=== PATIENT | female | born 1970 | race Caucasian/White ===

== ENCOUNTER 2018-12-24 09:13 | Day surgery (SDC) | payer MEDICAID ==
[2018-12-24] MEDS ORDERED: Lactated Ringers 1,000 ML IV SCH (09:45)
[2018-12-24] MEDS ORDERED: Midazolam 1 MG/ML 2 ML SDV ONE (10:50)
[2018-12-24] MEDS ORDERED: fentaNYL 100 MCG/2 ML SDV ONE (10:50)
[2018-12-24] MEDS ORDERED: Propofol 200 MG/20 ML SDV ONE (10:50)
[2018-12-24 13:03] VITALS: BP 140/53
--- NOTE | 2018-12-26 17:33 | OR ---
DATE OF PROCEDURE: 12/24/2018 PREOPERATIVE DIAGNOSIS: Colon cancer screening. POSTOPERATIVE DIAGNOSIS: Unremarkable colonoscopy. PROCEDURE: Colonoscopy to the cecum. ANESTHESIA: IV anesthesia with monitored anesthesia care. SURGEON: William Youssef MD INDICATION: This 48-year-old white female is referred for a colonoscopy for colon cancer screening. I counseled her for the procedure, including risks and alternatives, and she gave her informed consent to proceed. DESCRIPTION OF PROCEDURE: The patient was placed in the left lateral decubitus position. IV anesthesia was administered by the Anesthesia Service. Time-out was held. A rectal exam was performed, which was unremarkable. The flexible video Olympus colonoscope was introduced through her anus, up her rectum and out her colon, all the way to the cecum. Once the cecum was reached, the scope was slowly withdrawn, examining the mucosa throughout. No mucosal abnormalities were noted. The scope was retroflexed in the rectum with the distal rectum appearing unremarkable. The scope was straightened and removed. She tolerated the procedure well. William Youssef MD /[id number]
== END 2018-12-24 12:50 | disposition home or self-care (01) ==
LOC: JP.SDS 09:13
PROVIDERS: ATTEND Surgery
DX: Z12.11 Encounter for screening for malignant neoplasm of colon (principal); K21.9 Gastro-esophageal reflux disease without esophagitis; F41.9 Anxiety disorder, unspecified
CPT/HCPCS: 45378; J2250; J2704; J3010; J7120

== ENCOUNTER 2020-03-01 18:11 | Emergency (ER) | payer MEDICAID ==
[2020-03-01 18:56] VITALS: BP 154/100; PULSE 83
[2020-03-01] MEDS ORDERED: Propofol 200 MG/20 ML SDV IVPUSH ONE (19:08)
[2020-03-01] MEDS ORDERED: HYDROmorphone 0.5 MG/0.5 ML Syringe IVPUSH ONE (19:08)
--- NOTE | 2020-03-01 19:19 | CRLCR ---
Injury dislocation. Single AP view of the right shoulder. Findings: The humeral head is dislocated anterior inferior to the glenoid. No fractures. Dictated by Marie York MD @ Mar 01 2020 7:15PM Signed by Dr. Marie York @ Mar 01 2020 7:18PM
--- NOTE | 2020-03-01 19:43 | EDM.PDOC ---
ED HPI GENERAL MEDICAL PROBLEM - General Chief Complaint: Upper Extremity Injury/Pain Stated Complaint: RIGHT SHOULDER PAIN Time Seen by Provider: 03/01/20 19:00 Source of Information: Reports: Patient, Family History Limitations: Reports: No Limitations - History of Present Illness INITIAL COMMENTS - FREE TEXT/NARRATIVE: 50-year-old female was being pulled behind a boat on the tube where she fell off and injured her right shoulder. She is unable to move her shoulder. No distal paresthesias. No other injury, she is very healthy. She has not had anything to eat since this morning. Onset: Sudden Duration: Hour(s): (1 hour) Location: Reports: Upper Extremity, Right Associated Symptoms: Reports: No Other Symptoms Right Shoulder Pain Score (Numeric/FACES): 10 - Related Data Allergies Allergy/AdvReac Type Severity Reaction Status Date / Time No Known Allergies Allergy Verified 03/01/20 18:58 Home Meds: Home Meds Venlafaxine [Effexor] 75 mg PO DAILY 05/21/16 [History] Omeprazole 20 mg PO DAILY 12/20/18 [History] Tretinoin [Retin-A] 1 applic TOP DAILY 12/20/18 [History] Methotrexate Sodium/PF [Methotrexate 1 gm Vial] 0 dose IM ASDIRECTED 03/01/20 [History] predniSONE [Prednisone] 15 mg PO ASDIRECTED 03/01/20 [History] Past Medical History Musculoskeletal History: Reports: Fracture, Other (See Below) Other Musculoskeletal History: polymyalgia rheumatica - Past Surgical History HEENT Surgical History: Reports: Oral Surgery Musculoskeletal Surgical History: Reports: Carpal Tunnel Social & Family History - Tobacco Use Smoking Status *Q: Never Smoker - Caffeine Use Caffeine Use: Reports: Soda - Recreational Drug Use Recreational Drug Use: No Review of Systems - Review of Systems Review Of Systems: See Below Constitutional: Denies: Fever Respiratory: Denies: Shortness of Breath Cardiovascular: Denies: Chest Pain Musculoskeletal: Reports: Shoulder Pain (Right side) Skin: Denies: Bruising Neurological: Denies: Paresthesia ED EXAM, GENERAL - Physical Exam Exam: See Below Exam Limited By: No Limitations General Appearance: Alert, Moderate Distress Head: Atraumatic Neck: Non-Tender Respiratory/Chest: No Respiratory Distress Extremities: Other (The right shoulder shows a defect under the AC joint area. There is fullness anteriorly, and significant pain with any passive range of motion) Neurological: Alert, Oriented Psychiatric: Anxious Skin Exam: Warm, Dry Course - Vital Signs Last Recorded V/S: Last Vital Signs Temp 96.3 F L 03/01/20 18:56 Pulse 83 03/01/20 18:56 Resp 20 03/01/20 18:56 BP 154/100 H 03/01/20 18:56 Pulse Ox 95 03/01/20 18:56 - Orders/Labs/Meds Meds: Medications Discontinued Medications Generic Name Dose Route Start Last Admin Trade Name Jazmine PRN Reason Stop Dose Admin Hydromorphone HCl 0.5 mg 03/01/20 19:08 03/01/20 19:16 Dilaudid IVPUSH 03/01/20 19:09 0.5 mg ONETIME ONE Administration Propofol 200 mg 03/01/20 19:08 03/01/20 19:21 Diprivan 20 Ml IVPUSH 03/01/20 19:09 200 mg ONETIME ONE Administration - Re-Assessments/Exams Free Text/Narrative Re-Assessment/Exam: 03/01/20 19:41 An x-ray confirmed an anterior dislocation with no apparent fracture. With consent the patient was prepared for moderate anesthesia with propofol for shoulder reduction. A total of 130 mg of propofol was used to seduce sedation, and using countertraction the shoulder was reduced. 1 view x-ray confirmed anatomic reduction. Patient tolerated the procedure well, and on awakening she had significantly less discomfort. A right shoulder sling was placed on the patient she will follow-up with orthopedics later this week. Departure - Departure Time of Disposition: 20:10 Disposition: Home, Self-Care 01 Clinical Impression: Dislocation of right shoulder joint Qualifiers: Encounter type: initial encounter Qualified Code(s): S43.004A - Unspecified dislocation of right shoulder joint, initial encounter - Discharge Information Instructions: Shoulder Dislocation Referrals: PCP,None [Primary Care Provider] - Forms: ED Department Discharge Care Plan Goals: Wear sling for the next several days, avoid reaching upward and backward with your right arm and consider rechecking with orthopedics in the next 1 to 2 weeks to monitor progress. Sepsis Event Note (ED) - Evaluation Sepsis Screening Result: No Definite Risk - Focused Exam Vital Signs: Vital Signs Temp Pulse Resp BP Pulse Ox 03/01/20 18:56 96.3 F L 83 20 154/100 H 95 03/01/20 18:55 96.3 F L 83 20 154/100 H 95
--- NOTE | 2020-03-01 19:45 | CRLCR ---
HISTORY: Post reduction. TECHNIQUE: One view of the right shoulder. COMPARISON: 03/01/2020. FINDINGS: Reduction in previously seen right anterior shoulder dislocation. No acute fracture. Mild right AC joint arthrosis. IMPRESSION: 1. Reduction in previously seen right anterior shoulder dislocation. 2. No acute fracture. Dictated by Chang Tenorio MD @ 03/01/2020 7:45:10 PM Dictated by: Chang Tenorio MD @ 03/01/2020 19:45:12 (Electronically Signed)
== END 2020-03-01 20:10 | disposition home or self-care (01) ==
LOC: JP.ED 18:11
DX: S43.034A Inferior dislocation of right humerus, initial encounter (principal); S43.014A Anterior dislocation of right humerus, initial encounter; Z79.899 Other long term (current) drug therapy; W18.09XA Striking against other object with subsequent fall, initial encounter
CPT/HCPCS: 23650; 73020; 96374; 99152; 99283; J1170; J2704

== ENCOUNTER 2020-03-12 10:11 | Emergency (ER) | payer MEDICAID ==
[2020-03-12 10:33] VITALS: BP 149/85; PULSE 87
[2020-03-12] MEDS ORDERED: HYDROmorphone 1 MG/ML Syringe IM ONE (10:40)
--- NOTE | 2020-03-12 10:44 | EDM.PDOC ---
ED HPI GENERAL MEDICAL PROBLEM - General Chief Complaint: Upper Extremity Injury/Pain Stated Complaint: R SHOULDER PAIN Time Seen by Provider: 03/12/20 10:41 Source of Information: Reports: Patient, Old Records, RN History Limitations: Reports: No Limitations - History of Present Illness INITIAL COMMENTS - FREE TEXT/NARRATIVE: 50 yo female is brought in for R shoulder pain. Had a recent R anterior shoulder dislocation and today was petting a dog and it felt like it went out again. Is here with her . Has a sling at home. Onset: Today Onset Date: 03/12/20 Onset Time: 10:00 Duration: Minutes: Location: Reports: Upper Extremity, Right Quality: Reports: Ache Severity: Moderate Improves with: Reports: Rest Worsens with: Reports: Movement Context: Reports: Other (See HPI) Associated Symptoms: Reports: No Other Symptoms Treatments VACCINES SOLUTIONS SPECIALIST: Reports: Cold Therapy - Related Data Allergies Allergy/AdvReac Type Severity Reaction Status Date / Time No Known Allergies Allergy Verified 03/12/20 10:33 Home Meds: Home Meds Venlafaxine [Effexor] 75 mg PO DAILY 05/21/16 [History] Omeprazole 20 mg PO DAILY 12/20/18 [History] Tretinoin [Retin-A] 1 applic TOP DAILY 12/20/18 [History] Methotrexate Sodium/PF [Methotrexate 1 gm Vial] 0 dose IM ASDIRECTED 03/01/20 [History] predniSONE [Prednisone] 15 mg PO ASDIRECTED 03/01/20 [History] Folic Acid 1 tab PO DAILY 03/12/20 [History] Past Medical History Musculoskeletal History: Reports: Fracture, Other (See Below) Other Musculoskeletal History: polymyalgia rheumatica - Past Surgical History HEENT Surgical History: Reports: Oral Surgery Musculoskeletal Surgical History: Reports: Carpal Tunnel Social & Family History - Tobacco Use Smoking Status *Q: Never Smoker - Caffeine Use Caffeine Use: Reports: Soda Review of Systems - Review of Systems Review Of Systems: See Below Constitutional: Reports: No Symptoms Musculoskeletal: Reports: Joint Pain (R shoulder) Skin: Reports: No Symptoms Neurological: Reports: No Symptoms ED EXAM, GENERAL - Physical Exam Exam: See Below Exam Limited By: No Limitations General Appearance: Alert, WD/WN, Mild Distress Extremities: Normal Inspection, No Pedal Edema, Limited Range of Motion (of R shoulder), Other (some tenderness of the anterior deltoid area. ). No: Normal R abdiaziz of Motion, Non-Tender, Pedal Edema, Joint Swelling, Increased Warmth, Redness Course - Vital Signs Last Recorded V/S: Last Vital Signs Temp 36.2 C 03/12/20 10:41 Pulse 87 03/12/20 10:41 Resp 16 03/12/20 10:41 BP 149/85 H 03/12/20 10:41 Pulse Ox 96 03/12/20 10:41 - Orders/Labs/Meds Orders: Active Orders 24 hr Category Date Time Status Shoulder Comp Rt [CR] Stat Exams 03/12/20 10:38 Taken Meds: Medications Discontinued Medications Generic Name Dose Route Start Last Admin Trade Name Freq PRN Reason Stop Dose Admin Hydromorphone HCl 1 mg 03/12/20 10:40 03/12/20 10:45 Dilaudid IM 03/12/20 10:41 1 mg ONETIME ONE Administration - Radiology Interpretation Free Text/Narrative:: R shoulder X-ray- - Re-Assessments/Exams Free Text/Narrative Re-Assessment/Exam: 03/12/20 11:26 After her X-ray her shoulder reduced itself. Now has no pain and restored ROM. Departure - Departure Time of Disposition: 11:27 Disposition: Home, Self-Care 01 Condition: Good Clinical Impression: Shoulder pain Qualifiers: Chronicity: acute Laterality: right Qualified Code(s): M25.511 - Pain in right shoulder - Discharge Information *PRESCRIPTION DRUG MONITORING PROGRAM REVIEWED*: No *COPY OF PRESCRIPTION DRUG MONITORING REPORT IN PATIENT MEÑO: No Instructions: How To Use a Sling, [id number], Shoulder Dislocation, [id number] Referrals: PCP,None [Primary Care Provider] - Forms: ED Department Discharge Additional Instructions: Wear your sling for support. Avoid any over the head activity with the right arm. F/U with the doctor that you are seeing for your shoulder. Return as needed. Sepsis Event Note (ED) - Focused Exam Vital Signs: Vital Signs Temp Pulse Resp BP Pulse Ox 03/12/20 10:41 36.2 C 87 16 149/85 H 96 03/12/20 10:32 36.2 C 87 16 149/85 H 96 - My Orders Last 24 Hours: My Active Orders 03/12/20 10:38 Shoulder Comp Rt [CR] Stat - Assessment/Plan Last 24 Hours: My Active Orders 03/12/20 10:38 Shoulder Comp Rt [CR] Stat
--- NOTE | 2020-03-12 11:26 | CR ---
Shoulder Comp Rt CLINICAL HISTORY: Injury FINDINGS: There is an anterior dislocation at the glenohumeral joint. No fracture is seen. Impression: Anterior dislocation
== END 2020-03-12 11:34 | disposition home or self-care (01) ==
LOC: JP.ED 10:11
DX: M25.511 Pain in right shoulder (principal); Z79.899 Other long term (current) drug therapy
CPT/HCPCS: 73030; 96372; 99283; J1170

== ENCOUNTER 2020-06-15 11:35 | Day surgery (SDC) | payer MEDICAID ==
[2020-06-15] MEDS ORDERED: Propofol 200 MG/20 ML SDV ONE ×2 (11:51→13:20)
[2020-06-15] MEDS ORDERED: Midazolam 1 MG/ML 2 ML SDV ONE (11:52)
[2020-06-15] MEDS ORDERED: fentaNYL 100 MCG/2 ML SDV ONE (11:52)
[2020-06-15] MEDS ORDERED: ceFAZolin 2 GM in Premix Bag 1 BAG IV ONE (12:00)
[2020-06-15] MEDS ORDERED: Lactated Ringers 1,000 ML IV SCH (12:00)
[2020-06-15] MEDS ORDERED: Bupivacaine 0.5% 30 ML SDV ONE (12:21)
[2020-06-15] MEDS ORDERED: Bacitracin Oint 1 GM U/D Packet ONE (12:21)
[2020-06-15] MEDS ORDERED: Lidocaine 2% 20 ML MDV ONE (12:21)
[2020-06-15] MEDS ORDERED: Acetaminophen/HYDROcodone 325-5 MG Tab PO PRN (15:08)
[2020-06-15 15:38] VITALS: BP 132/85; PULSE 84
--- NOTE | 2020-06-15 20:07 | OR ---
DATE OF PROCEDURE: 06/15/2020 SURGEON: Leopoldo Carpenter DPM GYPSUM CALCINER: None. PREOPERATIVE DIAGNOSIS: Hallux rigidus, left foot. POSTOPERATIVE DIAGNOSIS: Hallux rigidus, left foot. PROCEDURE: Arthrodesis of the left first metatarsophalangeal joint. ANESTHESIA: Local with IV sedation. HEMOSTASIS: Was obtained with an ankle tourniquet on the left ankle at 250 mmHg. ESTIMATED BLOOD LOSS: 5 mL. MATERIALS: One Montano Vulevú first metatarsophalangeal joint arthrodesis plate was used with 4 locking screws and one nonlocking screw. INJECTABLES: A total of 17 mL of 1:1 mixture of lidocaine 2% plain, Marcaine 0.5% plain was injected at the beginning of the procedure. PATHOLOGY: None. CONDITION: Stable. INDICATIONS FOR SURGERY: A painful arthritic first metatarsophalangeal joint of the left foot that was unresponsive to conservative measures. PROCEDURE IN DETAIL: Patient was brought in the operating room, placed on the operating table in supine position. Following IV sedation, anesthesia was obtained with a total of 17 mL of 1:1 mixture of lidocaine 2% plain, Marcaine 0.5% plain. The left foot was scrubbed, prepped, and draped in the usual aseptic manner, raised to 60 degrees for hemostasis and exsanguinated using Esmarch bandage. Tourniquet was inflated. Foot was lowered to table. A skin incision was made over the dorsomedial aspect of the left first metatarsophalangeal joint. Incisions were deepened through subcutaneous tissues with care taken to identify and retract all vital neurovascular structures. Following subcutaneous dissection, a T-type incision was made into the first metatarsophalangeal joint and the joint capsule was carefully dissected off the distal aspect of the first metatarsal and the proximal aspect of the proximal phalanx. The bone spurs were removed from the first metatarsal head and the base of the proximal phalanx using a rongeur, and then, the guidewire was placed into the first metatarsal head and the reamers were used to remove the remainder of the cartilage and the subchondral plate. The same was done on the base of the proximal phalanx. A guidewire was placed into the base of the proximal phalanx and on the articular surface, the convex reamer was used to remove the subchondral plate and cartilage down to healthy bleeding bone from the base of the proximal phalangeal joint surface. A 1.6 mm K-wire was then used to fenestrate the first metatarsal head and the base of the proximal phalanx. The joint was then reduced in anatomic position. The position was checked both visually and fluoroscopically and found to be anatomic. It was held in place provisionally with a 1.6 mm K-wire, and then, the plate was provisionally placed over the arthrodesis site with olive wires. Again, Dr. Carpenter used fluoroscopy to check the position and found it to be anatomic; so then, the distal two locking screws were placed into the proximal phalanx, and hole for the compression screw was drilled and a compression screw was placed mostly in without tightening it. All provisional fixation was then removed, and then, the compression screw was placed in the rest of the way, and then, the last two locking screws were placed in the proximal end of the plate. We checked the position both visually and fluoroscopically. Dr. Carpenter used fluoroscopy to check the position and found it to be anatomic. The incision was then flushed out with copious amounts of sterile saline. Capsular closure was obtained with 3-0 Vicryl, the subcutaneous closure with 3-0 Vicryl, and skin closure with 4-0 nylon in a horizontal mattress configuration and then the foot was dressed with Xeroform, 4x4s, Kerlix, and Coban. Patient was returned to recovery room with vital signs stable and vascular status intact to both feet. The patient was given instructions to rest, ice, and elevate the left foot, maintain strict nonweightbearing for 4 weeks and keep Cam boot on for protection. Patient was told to ambulate with crutches. The patient was told to go the emergency room immediately if she had any nausea, vomiting, fever, chills, chest pain, calf pain, or difficulty breathing and to keep dressings clean, dry, and intact. Patient to return to clinic in one week with Dr. Carpenter, at which time, she will be re-evaluated. Leopoldo Carpenter DPM /[id number]
== END 2020-06-15 16:08 | disposition home or self-care (01) ==
LOC: JP.SDS 11:35
PROVIDERS: ATTEND Podiatrist Foot & Ankle Surgery
DX: M20.22 Hallux rigidus, left foot (principal); M19.072 Primary osteoarthritis, left ankle and foot; K21.9 Gastro-esophageal reflux disease without esophagitis; F41.9 Anxiety disorder, unspecified; G89.29 Other chronic pain; M25.561 Pain in right knee; Z79.899 Other long term (current) drug therapy
CPT/HCPCS: 28750; 76000; A9270; C1713; J0690; J2001; J2250; J2704; J3010; J3490; J7120